=== PATIENT | female | born 1960 | race African-American/Black ===

== ENCOUNTER → 2023-12-06 | Outpatient (CLI) | payer MEDICARE ==
[2023-12-06 08:31] LABS: Basophils # (auto) 0.1 10 ^3/uL (0-0.2); Basophils % (auto) 1.4 % (0.0-2.0); Eosinophils # (auto) 0.1 10 ^3/uL (0-0.8); Eosinophils % (auto) 2.5 % (0.0-7.0); Hematocrit 45.4 % (36.0-46.0); Hemoglobin 15.3 g/dL (12.2-16.2); Lymphocytes # (auto) 1.3 10 ^3/uL (0.4-5.4); Mean Corpuscular Hemoglobin 31.9 pg (28.0-32.0); Mean Corpuscular Hgb Conc. 33.7 g/dL (32.0-36.0); Mean Corpuscular Volume 94.7 fL (80.0-100.0); Monocytes # (auto) 0.4 10 ^3/uL (0-1.3); Monocytes % (auto) 10.8 % (0.0-12.0); Neutrophils # (auto) 2.2 10 ^3/uL (1.6-8.6); Neutrophils % (auto) 53.3 % (37.0-80.0); Nucleated Red Blood Cells % 0.1 %; Red Cell Distribution Width 13.7 % (11.8-14.3); White Blood Cell 4.1 10^3/uL (4.4-10.8)
[2023-12-06 08:37] LABS: Urine Bacteria MANY /hpf (None Seen); Urine Blood TRACE /uL (Negative); Urine Clarity Clear (Clear); Urine Color Light-Yellow (Yellow); Urine Protein, UAD Negative (Negative); Urine Specific Gravity 1.015 (1.001-1.035); Urine Urobilinogen Normal (Negative); Urine WBC 30 /hpf (0 - 5); Urine pH 6.5 (5.0-9.0)
[2023-12-06 09:14] LABS: Alanine Aminotransferase 13 U/L (7-40); Alkaline Phosphatase 52 U/L (46-116); Anion Gap 4 (5-15); Aspartate Aminotransferase 10 U/L (13-40); Calcium 9.5 mg/dL (8.7-10.4); Carbon Dioxide 28 mmol/L (20-30); Chloride 110 mmol/L (98-107); Sodium 142 mmol/L (136-145)
[2023-12-06 09:15] LABS: BUN/Creatinine Ratio 11.8 (10.0-20.0); Blood Urea Nitrogen 13 mg/dL (9-23); Glucose 113 mg/dL (74-106); Triglycerides 68 mg/dL (< 150)
[2023-12-06 09:16] LABS: LDL Cholesterol 94 mg/dL (< 100)
[2023-12-06 09:17] LABS: Albumin 3.9 g/dL (3.2-4.8); Bilirubin, Total 0.9 mg/dL (0.2-1.0); Cholesterol 157 mg/dL (< 200); HDL Cholesterol 45 mg/dL (40-59); Total Protein 6.3 g/dL (5.7-8.2)
== END | disposition home or self-care (01) ==
LOC: LAB 08:06
PROVIDERS: ATTEND Internal Medicine
DX: Z00.01 Encounter for general adult medical examination with abnormal findings (principal); Z13.1 Encounter for screening for diabetes mellitus; E78.5 Hyperlipidemia, unspecified; I12.9 Hypertensive chronic kidney disease with stage 1 through stage 4 chronic kidney disease, or unspecified chronic kidney disease; N18.9 Chronic kidney disease, unspecified; H36 Retinal disorders in diseases classified elsewhere; I27.20 Pulmonary hypertension, unspecified
CPT/HCPCS: 36415; 80053; 80061; 81001; 83021; 83036; 84439; 84443; 85025; 85660

== ENCOUNTER → 2024-03-10 | Outpatient (CLI) | payer MEDICARE ==
[2024-03-10 07:56] LABS: Basophils # (auto) 0.1 10 ^3/uL (0-0.2); Basophils % (auto) 1.2 % (0.0-2.0); Eosinophils # (auto) 0 10 ^3/uL (0-0.8); Eosinophils % (auto) 1.1 % (0.0-7.0); Hematocrit 43.8 % (36.0-46.0); Hemoglobin 14.4 g/dL (12.2-16.2); Lymphocytes # (auto) 1.1 10 ^3/uL (0.4-5.4); Lymphocytes % (auto) 26.7 % (10.0-50.0); Mean Corpuscular Hemoglobin 31.5 pg (28.0-32.0); Mean Corpuscular Hgb Conc. 32.9 g/dL (32.0-36.0); Mean Corpuscular Volume 95.8 fL (80.0-100.0); Monocytes # (auto) 0.5 10 ^3/uL (0-1.3); Monocytes % (auto) 12.8 % (0.0-12.0); Neutrophils # (auto) 2.4 10 ^3/uL (1.6-8.6); Neutrophils % (auto) 58.2 % (37.0-80.0); Platelet Count (auto) 190 10^3/uL (140-450); Red Blood Cells 4.57 10^6/uL (4.0-5.20); Red Cell Distribution Width 14.5 % (11.8-14.3); White Blood Cell 4.1 10^3/uL (4.4-10.8)
[2024-03-10 08:14] LABS: Alanine Aminotransferase 10 U/L (7-40); Alkaline Phosphatase 48 U/L (46-116); Anion Gap 5 (5-15); Aspartate Aminotransferase 11 U/L (13-40); BUN/Creatinine Ratio 17.5 (10.0-20.0); Blood Urea Nitrogen 22 mg/dL (9-23); Calcium 9.9 mg/dL (8.7-10.4); Carbon Dioxide 28 mmol/L (20-31); Chloride 112 mmol/L (98-107); Glucose 115 mg/dL (74-106); Potassium 4.5 mmol/L (3.5-5.1); Sodium 145 mmol/L (136-145)
[2024-03-10 08:15] LABS: Bilirubin, Total 0.7 mg/dL (0.2-1.0); Total Protein 6.5 g/dL (5.7-8.2)
[2024-03-10 08:27] LABS: Urine Bacteria MOD /hpf (None Seen); Urine Blood Negative /uL (Negative); Urine Clarity Turbid (Clear); Urine Color Light-Yellow (Yellow); Urine Mucus FEW (None Seen); Urine Protein, UAD TRACE (Negative); Urine Specific Gravity 1.023 (1.001-1.035); Urine Urobilinogen Normal (Negative); Urine WBC 125 /hpf (0 - 5)
== END | disposition home or self-care (01) ==
LOC: LAB 07:44
PROVIDERS: ATTEND Internal Medicine
DX: D72.819 Decreased white blood cell count, unspecified (principal); R80.9 Proteinuria, unspecified; R82.90 Unspecified abnormal findings in urine
CPT/HCPCS: 36415; 80053; 81001; 85025

== ENCOUNTER → 2024-07-17 | Outpatient (CLI) | payer MEDICARE ==
[2024-07-17 12:29] LABS: Urine Bacteria FEW /hpf (None Seen); Urine Blood Negative /uL (Negative); Urine Clarity Turbid (Clear); Urine Color Light-Yellow (Yellow); Urine Protein, UAD Negative (Negative); Urine Specific Gravity 1.018 (1.001-1.035); Urine Squamous Epithelial Cell FEW /hpf (<5); Urine Urobilinogen Normal (Negative); Urine WBC 23 /HPF (0-5); Urine pH 6.5 (5.0-9.0)
== END | disposition home or self-care (01) ==
LOC: LAB 12:08
PROVIDERS: ATTEND Urology
DX: N39.3 Stress incontinence (female) (male) (principal)
CPT/HCPCS: 81001; 87086

== ENCOUNTER → 2024-09-07 | Day surgery (SDC) | payer MEDICARE, OTHER ==
[2024-09-04 10:18] LABS: Basophils # (auto) 0 10 ^3/uL (0-0.2); Basophils % (auto) 0.5 % (0.0-2.0); Eosinophils # (auto) 0.1 10 ^3/uL (0-0.8); Eosinophils % (auto) 1.5 % (0.0-7.0); Hematocrit 45.7 % (36.0-46.0); Lymphocytes % (auto) 24.6 % (10.0-50.0); Mean Corpuscular Hemoglobin 31.2 pg (28.0-32.0); Mean Corpuscular Hgb Conc. 32.9 g/dL (32.0-36.0); Mean Corpuscular Volume 94.8 fL (80.0-100.0); Monocytes # (auto) 0.5 10 ^3/uL (0-1.3); Neutrophils # (auto) 2.5 10 ^3/uL (1.6-8.6); Neutrophils % (auto) 61.4 % (37.0-80.0); Platelet Count (auto) 194 10^3/uL (140-450); Red Blood Cells 4.82 10^6/uL (4.0-5.20); Red Cell Distribution Width 14.2 % (11.8-14.3); White Blood Cell 4.1 10^3/uL (4.4-10.8)
[2024-09-04 10:25] LABS: Urine Bacteria FEW /hpf (None Seen); Urine Blood Negative /uL (Negative); Urine Color Light-Yellow (Yellow); Urine Protein, UAD Negative (Negative); Urine Specific Gravity 1.016 (1.001-1.035); Urine Squamous Epithelial Cell FEW /hpf (<5); Urine Urobilinogen Normal (Negative); Urine WBC 78 /HPF (0-5); Urine pH 6.5 (5.0-9.0)
[2024-09-04 10:34] LABS: INR 0.99 (0.9-1.15); Partial Thromboplastin Time 24.8 SEC (24.5-34.5); Prothrombin Time 10.5 sec (9.3-11.8); Urine Clarity Cloudy (Clear)
[2024-09-04 10:37] LABS: Alanine Aminotransferase 10 U/L (7-40); Albumin 4.3 g/dL (3.2-4.8); Anion Gap 7 (5-15); Aspartate Aminotransferase 13 U/L (13-40); BUN/Creatinine Ratio 15.2 (10.0-20.0); Blood Urea Nitrogen 17 mg/dL (9-23); Calcium 10.3 mg/dL (8.7-10.4); Carbon Dioxide 29 mmol/L (20-31); Potassium 4.1 mmol/L (3.5-5.1); Sodium 145 mmol/L (136-145); Total Protein 6.9 g/dL (5.7-8.2)
[2024-09-04 10:38] LABS: Bilirubin, Total 0.9 mg/dL (0.2-1.0)
[2024-09-04 10:39] LABS: Alkaline Phosphatase 44 U/L (46-116); Chloride 109 mmol/L (98-107); Glucose 109 mg/dL (74-106)
[~2024-09-07] VITALS: Ht 165.1 cm; Wt 108.9 kg
[~2024-09-07] MED LIST: GLYCOPYRROLATE 0.2 MG/ML 1ML VIAL ONE; HYDROmorphone HCL 2 MG/ML VL/or syr IV PRN; KETAMINE 50mg/ML 1ml syringe ONE; KETOROLAC TROMETH 30 MG/ML 1ML VIAL ONE; MIDAZOLAM HCL 2MG/2ML 2ml VIAL (1mg/ml) ONE; ONDANSETRON HCL 4 MG/2 ML VIAL ONE; PROPOFOL 10 MG/ML 20 ML IV ONE; fentaNYL CITRATE 100 MCG/2 ML VL ONE
[2024-09-07 11:22] VITALS: TEMP 97; O2SAT 99
[2024-09-07 11:52] VITALS: BP 146/64; PULSE 76; RESP 18; O2SAT 98
--- NOTE | 2024-09-07 12:14 | DVH ---
FLUOROSCOPY TIME: 8.4 seconds TECHNIQUE: Intraoperative radiographs of the abdomen were obtained. COMPARISON: None FINDINGS: Refer to intraoperative report for further evaluation. IMPRESSION: Refer to intraoperative report for further evaluation.
--- NOTE | 2024-09-07 14:09 | DVHNC2 ---
Procedure - OPERATIVE REPORT Pre-op. Diagnosis: Stress Urinary Incontinence Intrinsic Sphincteric Deficiency Post-op. Diagnosis: Same as pre-op diagnosis Operation: Cystoscopy, Injection of Bulking Agent Fluoroscopy Anesthesia: General Indications: Patient has Stress Urinary Incontinence secondary to Intrinsic Sphincteric Deficiency. Indications, risks, complications, alternatives and benefits of cystoscopy with injection of bulking agent were discussed with patient. All questions were encouraged and answered. Patient is aware of specific risks/complications inc luding but not limited to infection, bleeding, persistent urinary hematuria, urinary incontinence and urinary retention. Informed consent was obtained. Details of Procedure: Patient is taken to Operating suite and given appropriate anesthesia. After prepping and draping, the patient was placed in the lithotomy position. A 21 F rigid cystoscope was introduced and the bladder was emptied. Next, the scope was positioned in the urethra and injection of Coaptite (Bulking agent) at 4 thru 8 O'clock position using a long transurethral needle was performed. Fluoroscopy was utilized to confirm the proper placement of the radioopaque bulking agent. Coaptation of bladder neck was noted. Bladder was emptied. Patient tolerated the procedure well. Patient is awakened and taken to RR in stable condition. Specimens: None Complications: None Findings: Notes: DISPOSITION: Discharge to home after voided . RTC 2 weeks. Visit Code: Procedure Codes: 78856 ENDOSCOPIC INJ IMPLANT. BLU MARINELLI MD September 07, 2024 14:09
--- NOTE | 2024-09-07 14:10 | DVHDS2 ---
New Physician D'charge PN Admitting Diagnosis Admitting Diagnosis Stress urinary incontinence Discharge Diagnosis Same Operations or Procedures Cystoscopy with Coaptite injection Reason(s) For Hospitalization Surgery Treatment Plan Discharge Condition of Discharge Good Disposition Home Discharge Instructions Diet: Regular Activity: Light activity Activity comment: As tolerated Medications: Given Follow Up Care Follow Up/Referral: Two weeks Discharge Statement: "Patient was advised to return to the ER or call 911 if any headaches, dizzi ness, shortness of breath, chest pain, abdominal pain, bleeding, fevers, or worsening of medical condition. Patient was counseled about treatment plan, medications, possible side effects, patient�verbalized understanding. All questions were answered to the best of my ability. This discharge took greater then 30 minutes in planning, reviewing documentation, counseling the patient, and discussing with other team members." BLU MARINELLI MD September 07, 2024 14:10
== END | disposition home or self-care (01) ==
LOC: SUR 09:33
PROVIDERS: ATTEND Urology
DX: N36.42 Intrinsic sphincter deficiency (ISD) (principal); N39.3 Stress incontinence (female) (male); I10 Essential (primary) hypertension; E78.00 Pure hypercholesterolemia, unspecified; Z79.82 Long term (current) use of aspirin; Z79.899 Other long term (current) drug therapy; Z90.710 Acquired absence of both cervix and uterus
CPT/HCPCS: 36415; 51715; 74018; 80053; 81001; 85025; 85610; 85730; 87086; J1885; J2250; J2405; J2704; J3010; L8606; 76000